=== PATIENT | female | born 1990 | race Caucasian/White ===

== ENCOUNTER 2017-03-21 18:00 | Emergency (ER) | payer BC ==
[~2017-03-21] VITALS: Ht 162.6 cm; Wt 100.3 kg
[~2017-03-21 18:00] MED LIST: ANAPROX DS550 M1 PO; COMPAZINE10 MG PO; FLOMAX0.4 MG PO; HYDROCODON-ACE1 EAC7 PO; HYDROCODONE-HO473 ML PO; PERCOCET 5/31 TABLET PO; PROMETHAZINE HC25 M1 PO; ZITHROMAX Z-PA250 MG PO; ZOFRAN ODT4 MG PO
[2017-03-21 21:41] LABS: ADD MIUA? YES; BILIRUBIN NEGATIVE; BLOOD SMALL; COLOR YELLOW ((YELLOW)); GLUCOSE (STRIP) NEGATIVE; KETONES NEGATIVE; LEUKOCYTES SMALL; NITRITE NEGATIVE; PROTEIN (STRIP) NEGATIVE; UROBILINOGEN 0.2 MG/DL (0.2-1.0)
[2017-03-21 21:47] LABS: BACTERIA RARE /HPF; EPITHELIAL CELLS 2+ /HPF; MUCUS NONE SEEN /LPF; RED BLOOD CELLS 0-5 /HPF (0-5)
[2017-03-21 21:50] LABS: INTERNAL CONTROL VALID? YES
[2017-03-21] MEDS ORDERED: MOTRIN800 MG PO (22:35)
[2017-03-21] MEDS ORDERED: FIORICET 50-301 EACH PO (22:35)
[2017-03-21] MEDS ORDERED: ANTIVERT25 MG PO (22:35)
[2017-03-21] MEDS ORDERED: REGLAN10 MG PO (22:37)
[2017-03-21 22:50] VITALS: BP 112/73
== END 2017-03-21 22:51 | disposition home or self-care (01) ==
LOC: EME 18:00
PROVIDERS: Physician Assistant
DX: G43.909 Migraine, unspecified, not intractable, without status migrainosus (principal); R11.0 Nausea; Z87.442 Personal history of urinary calculi
CPT/HCPCS: 81003; 84702; 84703; 99281; 99285; J1200; J1885; J2765; J7030

== ENCOUNTER 2017-09-15 10:03 | Emergency (ER) | payer BC, OTHER ==
[~2017-09-15] VITALS: Ht 162.6 cm; Wt 97.9 kg
[~2017-09-15 10:03] MED LIST changes: +ANTIVERT25 MG PO; +FIORICET 50-301 EACH PO; +MOTRIN800 MG PO; +REGLAN10 MG PO
[2017-09-15 11:23] LABS: HEMATOCRIT 40.3 % (36.0-46.0); HEMOGLOBIN 13.7 G/DL (11.9-15.5); MCH 30.1 PG (29.0-34.0); MCV 88.6 FL (83-99); PLATELET COUNT 365 K/uL (156-360); RBC DIS.WIDTH-CV 12.4 % (11.8-14.6); RBC DIS.WIDTH-SD 40.5 % (39-53); RED BLOOD COUNT 4.55 M/uL (3.80-5.20); WHITE BLOOD COUNT 9.7 K/uL (4.1-10.2)
[2017-09-15 11:28] LABS: APPEARANCE CLEAR ((CLEAR)); BILIRUBIN NEGATIVE; BLOOD SMALL; COLOR YELLOW ((YELLOW)); GLUCOSE (STRIP) NEGATIVE; KETONES NEGATIVE; LEUKOCYTES NEGATIVE; NITRITE NEGATIVE; PROTEIN (STRIP) NEGATIVE; SPECIFIC GRAVITY 1.024 (1.000-1.030); UROBILINOGEN 0.2 MG/DL (0.2-1.0)
[2017-09-15 11:34] LABS: BACTERIA NONE SEEN /HPF; EPITHELIAL CELLS RARE /HPF; MUCUS TRACE /LPF; RED BLOOD CELLS 0-5 /HPF (0-5); UCUL ADDED? NO; WHITE BLOOD CELLS 0-5 /HPF (0-5)
[2017-09-15 11:36] LABS: ALBUMIN 4.6 g/dL (3.2-4.8); CHLORIDE 109 mEq/L (99-109); POTASSIUM 3.9 mEq/L (3.7-5.4); SODIUM 141 mEq/L (136-147)
[2017-09-15 11:38] LABS: GLUCOSE 93 mg/dL (70-99)
[2017-09-15 11:39] LABS: TOTAL PROTEIN 7.6 g/dL (6.4-8.3)
[2017-09-15 11:40] LABS: TOTAL BILIRUBIN 0.4 mg/dL (0.0-1.0)
[2017-09-15 11:42] LABS: ALKALINE PHOSPHATASE 67 IU/L (3-129); CREATININE 0.8 mg/dL (0.6-1.3); GFR ESTIMATE (CALCULATED) > 59 mL/min/
[2017-09-15 11:43] LABS: UREA NITROGEN (BUN) 15 mg/dL (9-23)
[2017-09-15 11:44] LABS: AST (GOT) 16 IU/L (2-34)
[2017-09-15 11:45] LABS: ALT (GPT) 18 IU/L (3-49)
[2017-09-15 11:51] LABS: QUANTITATIVE HCG 4.1 MIU/ML
[2017-09-15 13:18] VITALS: BP 112/67
== END 2017-09-15 13:18 | disposition home or self-care (01) ==
LOC: EME 10:03
PROVIDERS: Emergency Medicine
DX: O20.0 Threatened abortion (principal); E28.2 Polycystic ovarian syndrome; Z3A.01 Less than 8 weeks gestation of pregnancy; F41.9 Anxiety disorder, unspecified; Z87.442 Personal history of urinary calculi; Z88.2 Allergy status to sulfonamides
CPT/HCPCS: 76801; 80053; 81003; 84702; 85027; 86900; 86901; 99281; 99284